=== PATIENT | female | born 1990 | race African-American/Black ===

== ENCOUNTER 2017-02-01 11:59 | Emergency (ER) | payer BC ==
[2017-02-01 15:06] VITALS: BP 135/97
== END 2017-02-01 15:06 | disposition home or self-care (01) ==
LOC: ED 11:59
DX: S20.212A Contusion of left front wall of thorax, initial encounter (principal); V49.49XA Driver injured in collision with other motor vehicles in traffic accident, initial encounter; Y93.89 Activity, other specified; Y99.8 Other external cause status; Y92.89 Other specified places as the place of occurrence of the external cause